=== PATIENT | female | born 1970 | race African-American/Black ===

== ENCOUNTER 2018-02-05 06:42 | Emergency (ER) | payer MEDICARE, MEDICAID ==
[~2018-02-05] VITALS: Ht 167.6 cm; Wt 64.0 kg
[2018-02-05] MEDS ORDERED: KETOROLAC 30MG/ML VIAL IV STA (07:31)
[2018-02-05] MEDS ORDERED: SODIUM CHLORIDE 0.9% 1,000 ML IV ONE (07:31)
[2018-02-05] MEDS ORDERED: ONDANSETRON HCL 4MG/2ML VIAL IV STA (07:31)
[2018-02-05] MEDS ORDERED: MORPHINE SULFATE 4 MG/ML CPJ (NOT FOR IM USE) IV STA (07:31)
[2018-02-05 08:03] LABS: BASOPHILS % 0.9 % (0.0-2.0); EOSINOPHILS % 0.4 % (0.0-5.0); HEMATOCRIT. 34.8 % (36.0-48.0); HEMOGLOBIN. 11.9 g/dL (12.0-16.0); LYMPHOCYTES % 19.6 % (20.0-50.0); MEAN CORPUSCULAR HEMOGLOBIN 26.8 pg (28.0-32.0); MEAN CORPUSCULAR VOLUME 78.4 fL (81.0-99.0); NEUTROPHILS % 72.1 % (40.0-76.0); PLATELET 340 x1000/uL (130-400); RED BLOOD CELL COUNT 4.44 mill/uL (4.2-5.4); RED CELL DISTRIBUTION WIDTH 13.7 % (11.6-14.6)
[2018-02-05 08:05] LABS: CHLORIDE 108 mEq/L (98-107)
[2018-02-05 08:06] LABS: PROTHROMBIN TIME 10.7 sec (9.4-11.6)
[2018-02-05 08:09] LABS: ETHANOL BLOOD < 10 mg/dL
[2018-02-05 08:23] LABS: HCG SCREEN NEGATIVE
[2018-02-05 08:43] LABS: CLARITY URINE CLEAR (CLEAR); COLOR URINE YELLOW (YELLOW); KETONES URINE NEGATIVE (NEGATIVE); LEUKOCYTE ESTERASE URINE NEGATIVE (NEGATIVE); NITRITE URINE NEGATIVE (NEGATIVE); OCCULT BLOOD URINE NEGATIVE (NEGATIVE); PROTEIN URINE NEGATIVE (NEGATIVE); SPECIFIC GRAVITY URINE 1.007 (1.005-1.030); UROBILINOGEN URINE 0.2 E.U./dL (0.2-1.0)
[2018-02-05 08:56] LABS: *BARBITURATES SCREEN URINE NEGATIVE (NEGATIVE); *BENZODIAZEPINES SCREEN URINE NEGATIVE (NEGATIVE); *COCAINE SCREEN URINE NEGATIVE (NEGATIVE)
[2018-02-05 08:57] LABS: *AMPHETAMINES SCREEN URINE NEGATIVE (NEGATIVE); METHADONE URINE SCREEN NEGATIVE (NEGATIVE); OPIATES URINE SCREEN NEGATIVE (NEGATIVE); PHENCYCLIDINE URINE SCREEN NEGATIVE (NEGATIVE)
[2018-02-05 09:48] LABS: CANNABINOID URINE SCREEN PRESUMTIVE POSITIVE (NEGATIVE)
[2018-02-05 10:46] VITALS: BP 124/90
== END 2018-02-05 10:56 | disposition home or self-care (01) ==
LOC: ER 06:42
DX: K52.9 Noninfective gastroenteritis and colitis, unspecified (principal); J45.909 Unspecified asthma, uncomplicated; F32.9 Major depressive disorder, single episode, unspecified; F17.210 Nicotine dependence, cigarettes, uncomplicated; F12.10 Cannabis abuse, uncomplicated; Z98.890 Other specified postprocedural states; Z88.0 Allergy status to penicillin; Z71.6 Tobacco abuse counseling
CPT/HCPCS: 36415; 71045; 74176; 80053; 80305; 81003; 81025; 82962; 83690; 83880; 84484; 84703; 85025; 85610; 87086; 96361; 96374; 96375; 99285; 99406; G0482; J1885; J2270; J2405; J7030

== ENCOUNTER 2018-12-06 19:54 | Emergency (ER) | payer MEDICARE, MEDICAID ==
[~2018-12-06] VITALS: Ht 167.6 cm; Wt 70.0 kg
[2018-12-06] MEDS ORDERED: SODIUM CHLORIDE 0.9% 1,000 ML IV ONE (20:26)
[2018-12-06] MEDS ORDERED: ONDANSETRON HCL 4MG/2ML INJ IV STA (20:26)
[2018-12-06] MEDS ORDERED: ASPIRIN 81MG TABLET PO ONE (20:30)
[2018-12-06] MEDS ORDERED: DILTIAZEM HCL 5MG/ML 5ML VIAL IV ONE (20:30)
[2018-12-06 21:11] LABS: *AMPHETAMINES SCREEN URINE NEGATIVE (NEGATIVE); *BARBITURATES SCREEN URINE NEGATIVE (NEGATIVE); *BENZODIAZEPINES SCREEN URINE NEGATIVE (NEGATIVE); *COCAINE SCREEN URINE NEGATIVE (NEGATIVE); METHADONE URINE SCREEN NEGATIVE (NEGATIVE); OPIATES URINE SCREEN NEGATIVE (NEGATIVE)
[2018-12-06 21:12] LABS: PHENCYCLIDINE URINE SCREEN NEGATIVE (NEGATIVE)
[2018-12-06 21:13] LABS: CANNABINOID URINE SCREEN PRESUMTIVE POSITIVE (NEGATIVE)
[2018-12-07 00:54] LABS: BASOPHILS % 0.5 % (0.0-2.0); EOSINOPHILS % 1.5 % (0.0-5.0); HEMATOCRIT. 34.3 % (36.0-48.0); HEMOGLOBIN. 11.3 g/dL (12.0-16.0); LYMPHOCYTES % 32.6 % (20.0-50.0); MEAN CORPUSCULAR HEMOGLOBIN 27.2 pg (28.0-32.0); MEAN CORPUSCULAR VOLUME 82.3 fL (81.0-99.0); MONOCYTES % 6.8 % (2.0-8.0); NEUTROPHILS % 58.6 % (40.0-76.0); PLATELET 264 x1000/uL (130-400); RED BLOOD CELL COUNT 4.17 mill/uL (4.2-5.4); RED CELL DISTRIBUTION WIDTH 13.5 % (11.6-14.6)
[2018-12-07 01:05] LABS: CHLORIDE 114 mEq/L (98-107)
[2018-12-07 01:08] LABS: HCG SCREEN NEGATIVE; PARTIAL THROMBOPLASTIN TIME 26.6 sec (23.4-31.0); PROTHROMBIN TIME 10.1 sec (9.1-11.1)
[2018-12-07 01:11] LABS: ETHANOL BLOOD < 10 mg/dL
[2018-12-07 01:16] LABS: T4 FREE 1.12 ng/dL (0.76-1.46)
[2018-12-07 08:16] VITALS: BP 100/77
== END 2018-12-07 08:45 ==
LOC: ER 19:54 → EDBEDREQTM 12-07 00:21 → EDBEDREQDT 12-07 00:21 → EDBEDREQ 12-07 00:21 → ER 12-07 08:45 → CANRESERV 12-07 11:04 → ENRESERV 12-07 11:04 → CANBEDREQ 12-07 17:06
DX: I47.1 Supraventricular tachycardia (principal); F17.210 Nicotine dependence, cigarettes, uncomplicated; F12.10 Cannabis abuse, uncomplicated; R00.2 Palpitations; R07.9 Chest pain, unspecified; Z88.0 Allergy status to penicillin; Z98.890 Other specified postprocedural states
CPT/HCPCS: 36415; 71045; 80053; 80305; 80320; 83690; 83880; 84439; 84443; 84481; 84484; 84703; 85025; 85610; 85730; 93005; 96374; 96375; 99284; 99406; J2405; J3490; J7030; G0480

== ENCOUNTER 2025-08-10 23:54 | Emergency (ER) | payer BC, MEDICAID ==
[~2025-08-10] VITALS: Ht 165.1 cm; Wt 79.0 kg
[~2025-08-10 23:54] MED LIST: CEPH500C2 MT; CLAR10 PO; HYDR-4001 MT; IBUP-2030 MT; METO25TA6 PO; P20 MT
[2025-08-11 00:02] VITALS: O2SAT 100
[2025-08-11 00:43] LABS: CREATININE 0.9 mg/dL (0.6-1.0); UREA NITROGEN BLOOD 11 mg/dL (9-23)
[2025-08-11 00:44] LABS: TROPONIN I HIGH SENSITIVITY < 4 ng/L (3.0-34)
[2025-08-11 01:18] LABS: BASOPHILS % 0.5 % (0.0-2.0); EOSINOPHILS % 1.1 % (0.0-5.0); HEMATOCRIT. 35.7 % (36.0-48.0); HEMOGLOBIN. 11.7 g/dL (12.0-16.0); LYMPHOCYTES % 37.3 % (20.0-50.0); MEAN PLATELET VOLUME 9.5 fl (7.4-10.4); MONOCYTES % 7.5 % (2.0-8.0); NEUTROPHILS % 53.6 % (40.0-76.0); PLATELET 324 x1000/uL (130-400); RED BLOOD CELL COUNT 4.40 mill/uL (4.2-5.4); RED CELL DISTRIBUTION WIDTH 13.9 % (11.6-14.6)
[2025-08-11] MEDS: ACETAMINOPHEN 325MG TABLET PO ONE (02:27)
[2025-08-11 02:39] LABS: CLARITY URINE CLOUDY (CLEAR); COLOR URINE YELLOW (YELLOW); GLUCOSE URINE NEGATIVE (NEGATIVE); KETONES URINE NEGATIVE (NEGATIVE); LEUKOCYTE ESTERASE URINE TRACE (NEGATIVE); NITRITE URINE NEGATIVE (NEGATIVE); OCCULT BLOOD URINE NEGATIVE (NEGATIVE); PH URINE 5.5 (4.5-8.0); PROTEIN URINE NEGATIVE (NEGATIVE); SPECIFIC GRAVITY URINE 1.015 (1.005-1.030); UROBILINOGEN URINE 0.2 E.U./dL (0.2-1.0)
[2025-08-11 03:16] LABS: TROPONIN I HIGH SENSITIVITY < 4 ng/L (3.0-34)
[2025-08-11 04:56] LABS: SQUAMOUS EPITHELIAL CELL URINE 2+ /lpf (RARE/1+)
[2025-08-11 04:57] LABS: WBC URINE 0-2 /hpf (0-2)
[2025-08-11 04:58] LABS: BACTERIA URINE 1+
[2025-08-11 04:59] LABS: RBC URINE 0-2 /hpf (0-2)
[2025-08-11] MEDS ORDERED: IOHEXOL-350 50 ML BOTTLE ONE (05:04)
[2025-08-11] MEDS ORDERED: ALBU90AE INH (05:16)
[2025-08-11 05:26] VITALS: BP 116/88; PULSE 75; RESP 18; TEMP 36.7; O2SAT 100
== END 2025-08-11 05:28 | disposition home or self-care (01) ==
LOC: ER 23:54
DX: R07.89 Other chest pain (principal); R06.02 Shortness of breath; I50.9 Heart failure, unspecified; J45.909 Unspecified asthma, uncomplicated; Z88.0 Allergy status to penicillin; Z88.1 Allergy status to other antibiotic agents
CPT/HCPCS: 99285; 81025; 71275; 71045; 80048; 81003; 83880; 85025; 85379; 36415; 84484; 93005; Q9967